=== PATIENT | female | born 1945 | race Two or more races ===

== ENCOUNTER 2017-07-15 15:30 | Emergency (ER) | payer OTHER ==
[~2017-07-15] VITALS: Ht 157.5 cm; Wt 51.7 kg
[~2017-07-15 15:30] MED LIST: PHE100C PO
[2017-07-15 16:13] LABS: Hematocrit 40.5 % (36.0-46.0); Hemoglobin 13.2 g/dL (12.2-16.2); Mean Corpuscular Hemoglobin 31.3 pg (28.0-32.0); Mean Corpuscular Hgb Conc. 32.6 g/dL (32.0-36.0); Mean Platelet Volume 7.6 fL (6.9-10.8); Platelet Count (auto) 246 10^3/uL (140-450); White Blood Cell 8.7 10^3/uL (4.4-10.8)
[2017-07-15] MEDS ORDERED: SODIUM CHLORIDE 0.9% 1,000 ML IVB ONE (16:36)
[2017-07-15 16:42] LABS: Albumin 3.3 g/dL (3.4-5.0); Alkaline Phosphatase 115 U/L (45-117); Anion Gap 10 (5-15); Aspartate Aminotransferase 15 U/L (15-37); BUN/Creatinine Ratio 20.3; Bilirubin, Total 0.1 mg/dL (0.2-1.0); Blood Urea Nitrogen 14 mg/dL (7-18); Calcium 8.5 mg/dL (8.5-10.1); Carbon Dioxide 25 mmol/L (21-32); Chloride 106 mmol/L (98-107); GFR African American 107 mL/min; GFR Non-African American 88 mL/min; Glucose 126 mg/dL (74-106); Magnesium 2.3 mg/dL (1.6-2.6); Potassium 3.7 mmol/L (3.5-5.1); Sodium 141 mmol/L (136-145); Total Protein 6.7 g/dL (6.4-8.2)
[2017-07-15 16:47] LABS: Metamyelocytes % 0; Myelocytes % 0; Promyelocytes % 0; Reactive Lymphocytes 0
[2017-07-15 17:12] LABS: Platelet Estimate Adequate
[2017-07-15 18:41] VITALS: BP 159/58
== END 2017-07-15 18:46 | disposition home or self-care (01) ==
LOC: EDBD 15:30 → ER 15:38
DX: R55 Syncope and collapse (principal); Z86.73 Personal history of transient ischemic attack (TIA), and cerebral infarction without residual deficits; Z79.899 Other long term (current) drug therapy
CPT/HCPCS: 36415; 70450; 80053; 83735; 84484; 85007; 85027; 93005; 94761

== ENCOUNTER 2017-12-26 12:51 | Emergency (ER) | payer OTHER ==
[~2017-12-26] VITALS: Ht 167.6 cm; Wt 56.2 kg
[2017-12-26 13:51] LABS: Basophils # (auto) 0.1 uL; Basophils % (auto) 0.8 % (0.0-2.0); Eosinophils # (auto) 0.1 uL; Eosinophils % (auto) 1.2 % (0.0-7.0); Hematocrit 41.3 % (36.0-46.0); Hemoglobin 14.1 g/dL (12.2-16.2); Lymphocytes # (auto) 2.6 uL; Lymphocytes % (auto) 26.8 % (10.0-50.0); Mean Corpuscular Hemoglobin 32.1 pg (28.0-32.0); Mean Corpuscular Hgb Conc. 34.1 g/dL (32.0-36.0); Monocytes # (auto) 0.8 uL; Monocytes % (auto) 7.9 % (0.0-12.0); Neutrophils # (auto) 6.2 uL; Neutrophils % (auto) 63.3 % (37.0-80.0); Platelet Count (auto) 289 10^3/uL (140-450); Red Cell Distribution Width 13.4 % (11.8-14.3); White Blood Cell 9.7 10^3/uL (4.4-10.8)
[2017-12-26 14:34] LABS: Alanine Aminotransferase 40 U/L (13-56); Albumin 3.5 g/dL (3.4-5.0); Alkaline Phosphatase 132 U/L (45-117); Amylase 37 U/L (25-115); Anion Gap 7 (5-15); Aspartate Aminotransferase 24 U/L (15-37); BUN/Creatinine Ratio 13.4; Bilirubin, Total 0.2 mg/dL (0.2-1.0); Blood Urea Nitrogen 13 mg/dL (7-18); Carbon Dioxide 26 mmol/L (21-32); Chloride 108 mmol/L (98-107); GFR African American 72 mL/min; GFR Non-African American 60 mL/min; Glucose 98 mg/dL (74-106); Lipase 121 U/L (73-393); Magnesium 2.8 mg/dL (1.6-2.6); Potassium 4.1 mmol/L (3.5-5.1); Sodium 141 mmol/L (136-145); Total Protein 6.9 g/dL (6.4-8.2)
[2017-12-26 16:35] VITALS: BP 113/61
== END 2017-12-26 16:40 | disposition home or self-care (01) ==
LOC: ER 12:51
DX: K29.70 Gastritis, unspecified, without bleeding (principal); Z90.49 Acquired absence of other specified parts of digestive tract; Z90.710 Acquired absence of both cervix and uterus
CPT/HCPCS: 36415; 74176; 80053; 82150; 83690; 83735; 84484; 85025; 93005

== ENCOUNTER 2019-10-15 21:23 | Emergency (ER) | payer OTHER ==
[~2019-10-15] VITALS: Ht 157.5 cm; Wt 54.4 kg
[2019-10-15] MEDS ORDERED: LORazepam 2MG/ML-1ML VIAL ONE (22:26)
[2019-10-15] MEDS ORDERED: LORazepam 2MG/ML-1ML VIAL IV ONE (22:30)
[2019-10-15] MEDS ORDERED: SODIUM CHLORIDE 0.9% 1,000 ML IV ONE (22:45)
[2019-10-15 22:48] LABS: Basophils # (auto) 0 uL; Basophils % (auto) 0.4 % (0.0-2.0); Eosinophils # (auto) 0 uL; Eosinophils % (auto) 0.1 % (0.0-7.0); Hematocrit 40.8 % (36.0-46.0); Hemoglobin 13.9 g/dL (12.2-16.2); Lymphocytes # (auto) 1.8 uL; Lymphocytes % (auto) 18.4 % (10.0-50.0); Mean Corpuscular Hemoglobin 32.9 pg (28.0-32.0); Mean Corpuscular Hgb Conc. 34.1 g/dL (32.0-36.0); Mean Corpuscular Volume 96.5 fL (80.0-100.0); Monocytes # (auto) 0.7 uL; Monocytes % (auto) 6.8 % (0.0-12.0); Neutrophils # (auto) 7.1 uL; Neutrophils % (auto) 74.3 % (37.0-80.0); Nucleated Red Blood Cells % 0.1 %; Platelet Count (auto) 202 10^3/uL (140-450); Red Blood Cells 4.22 10^6/uL (4.0-5.20); Red Cell Distribution Width 13.3 % (11.8-14.3); White Blood Cell 9.6 10^3/uL (4.4-10.8)
[2019-10-15 23:06] LABS: Albumin 3.5 g/dL (3.4-5.0); Calcium 8.6 mg/dL (8.5-10.1); Magnesium 2.4 mg/dL (1.6-2.6); Potassium 4.1 mmol/L (3.5-5.1)
[2019-10-15 23:09] LABS: BUN/Creatinine Ratio 14.5; Bilirubin, Total 0.3 mg/dL (0.2-1.0); Total Protein 7.1 g/dL (6.4-8.2)
[2019-10-15] MEDS ORDERED: ASPI-231 PO (23:52)
[2019-10-15] MEDS ORDERED: PHE100C PO (23:52)
[2019-10-16] MEDS ORDERED: DexAMETHasone SOD PHOS 10MG/1ML VIAL INJ IV ONE (00:30)
[2019-10-16] MEDS ORDERED: LORazepam 2MG/ML-1ML VIAL IV ONE (00:45)
[2019-10-16] MEDS ORDERED: PHENYTOIN IV DILANTIN 1,000 MG in SODIUM CHL 0.9% 250 ML IV ONE (00:45)
[2019-10-16] MEDS ORDERED: PHENYTOIN SODIUM 50 MG/ML 5ML INJ VIAL IV ONE (00:50)
[2019-10-16] MEDS ORDERED: PHENYTOIN SODIUM 50 MG/ML 2ML VIAL IV ONE (00:50)
[2019-10-16 01:56] VITALS: BP 101/35
[2019-10-16 02:06] LABS: INR 1.23 (0.9-1.15); Partial Thromboplastin Time 27.9 sec (23.64-32.05)
[2019-10-16] MEDS ORDERED: MANNITOL 20% SOLN 100 gm/500ml 250 ML IV ONE (02:15)
== END 2019-10-16 02:05 | disposition short-term general hospital (02) ==
LOC: EDBD 21:23 → ER 21:25
DX: S06.5X9A Traumatic subdural hemorrhage with loss of consciousness of unspecified duration, initial encounter (principal); G40.909 Epilepsy, unspecified, not intractable, without status epilepticus; Z90.49 Acquired absence of other specified parts of digestive tract; Z90.710 Acquired absence of both cervix and uterus; X58.XXXA Exposure to other specified factors, initial encounter; Y93.89 Activity, other specified; Y92.89 Other specified places as the place of occurrence of the external cause; Y99.8 Other external cause status
CPT/HCPCS: 36415; 70450; 71045; 80053; 80185; 83735; 85025; 85610; 85730; 93005; 96361; 96365; 96375; 99285; J1100; J1165; J2060; J7030; J7050

== ENCOUNTER 2021-09-26 11:03 | Emergency (ER) | payer OTHER ==
[~2021-09-26] VITALS: Ht 154.9 cm; Wt 54.4 kg
[~2021-09-26 11:03] MED LIST changes: +ASPI1TAB20 PO
[2021-09-26] MEDS ORDERED: SODIUM CHLORIDE 0.9% 1,000 ML IV ONE (11:15)
[2021-09-26 12:54] LABS: Basophils # (auto) 0 10 ^3/uL (0-0.2); Basophils % (auto) 0.6 % (0.0-2.0); Eosinophils # (auto) 0 10 ^3/uL (0-0.8); Eosinophils % (auto) 0.2 % (0.0-7.0); Hematocrit 41.4 % (36.0-46.0); Hemoglobin 14.3 g/dL (12.2-16.2); Lymphocytes # (auto) 1.3 10 ^3/uL (0.4-5.4); Lymphocytes % (auto) 16.7 % (10.0-50.0); Mean Corpuscular Hemoglobin 32.9 pg (28.0-32.0); Mean Corpuscular Hgb Conc. 34.6 g/dL (32.0-36.0); Mean Corpuscular Volume 95.1 fL (80.0-100.0); Monocytes # (auto) 0.5 10 ^3/uL (0-1.3); Monocytes % (auto) 6.5 % (0.0-12.0); Neutrophils # (auto) 5.9 10 ^3/uL (1.6-8.6); Nucleated Red Blood Cells % 0.2 %; Red Blood Cells 4.35 10^6/uL (4.0-5.20); Red Cell Distribution Width 12.9 % (11.8-14.3); White Blood Cell 7.8 10^3/uL (4.4-10.8)
[2021-09-26 13:17] LABS: Albumin 3.2 g/dL (3.4-5.0); BUN/Creatinine Ratio 14.9; Calcium 8.5 mg/dL (8.5-10.1); Potassium 4.5 mmol/L (3.5-5.1)
[2021-09-26 13:20] LABS: Bilirubin, Total 0.2 mg/dL (0.2-1.0); Total Protein 6.4 g/dL (6.4-8.2)
[2021-09-26] MEDS ORDERED: PHENYTOIN IV DILANTIN 500 MG in SODIUM CHL 0.9% 100 ML IV ONE (14:00)
[2021-09-26] MEDS ORDERED: ACETAMINOPHEN 325 MG TAB PO STA (14:22)
[2021-09-26 15:20] VITALS: BP 136/45
== END 2021-09-26 13:52 | disposition home or self-care (01) ==
LOC: EDBD 11:03 → ER 11:03
DX: S00.01XA Abrasion of scalp, initial encounter (principal); R56.9 Unspecified convulsions; R41.82 Altered mental status, unspecified; Z90.49 Acquired absence of other specified parts of digestive tract; Z90.710 Acquired absence of both cervix and uterus; X58.XXXA Exposure to other specified factors, initial encounter; Y93.89 Activity, other specified; Y92.89 Other specified places as the place of occurrence of the external cause; Y99.8 Other external cause status
CPT/HCPCS: 36415; 70450; 72125; 80053; 80185; 85025; 93005; 96361; 96365; 99284; J1165; J7030

== ENCOUNTER 2022-01-03 14:39 | Inpatient (IN) | payer OTHER ==
[~2022-01-03] VITALS: Ht 157.5 cm; Wt 56.8 kg
[2022-01-03] MEDS ORDERED: SODIUM CHLORIDE 0.9% 1,000 ML IV ONE ×2 (15:00→17:15)
[2022-01-03 16:21] LABS: Albumin 3.5 g/dL (3.4-5.0); Calcium 8.4 mg/dL (8.5-10.1); Magnesium 2.5 mg/dL (1.6-2.6); Potassium 4.1 mmol/L (3.5-5.1)
[2022-01-03 16:23] LABS: Salicylate < 1.7 mg/dL (2.8-20.0)
[2022-01-03 16:24] LABS: BUN/Creatinine Ratio 14.5; Bilirubin, Total 0.3 mg/dL (0.2-1.0); CRP High Sensitivity 0.18 mg/dL (< 0.3); Total Protein 6.9 g/dL (6.4-8.2)
[2022-01-03 16:28] LABS: Basophils # (auto) 0.2 10 ^3/uL (0-0.2); Basophils % (auto) 2.2 % (0.0-2.0); Eosinophils # (auto) 0.1 10 ^3/uL (0-0.8); Eosinophils % (auto) 0.9 % (0.0-7.0); Hematocrit 39.4 % (36.0-46.0); Hemoglobin 13.4 g/dL (12.2-16.2); Lymphocytes % (auto) 24.8 % (10.0-50.0); Mean Corpuscular Hemoglobin 32.8 pg (28.0-32.0); Mean Corpuscular Hgb Conc. 34.1 g/dL (32.0-36.0); Monocytes # (auto) 0.6 10 ^3/uL (0-1.3); Monocytes % (auto) 6.9 % (0.0-12.0); Neutrophils # (auto) 5.2 10 ^3/uL (1.6-8.6); Neutrophils % (auto) 65.2 % (37.0-80.0); Nucleated Red Blood Cells % 0.1 %; Red Cell Distribution Width 13.8 % (11.8-14.3)
[2022-01-03 16:49] LABS: Phenytoin (Dilantin) 45.4 ug/mL (10-20)
[2022-01-03] MEDS ORDERED: HYDROcodone-ACET 5/325MG TAB PO PRN (21:45)
[2022-01-03] MEDS ORDERED: DOCUSATE SOD 100 MG CAP PO PRN (21:45)
[2022-01-03] MEDS ORDERED: ONDANSETRON HCL 4 MG/2 ML VIAL IV PRN (21:45)
[2022-01-03] MEDS ORDERED: NITROGLYCERIN 0.4 MG SL TAB SL PRN (23:45)
[2022-01-03] MEDS ORDERED: MORPHINE SULFATE INJ 2 MG/ml SYRG IV PRN (23:45)
[2022-01-04 00:03] LABS: Urine Bacteria MOD /hpf (None Seen); Urine Blood 3+ /uL (Negative); Urine Specific Gravity 1.006 (1.001-1.035); Urine WBC <1 /hpf (0 - 5)
[2022-01-04 06:12] LABS: Basophils # (auto) 0.1 10 ^3/uL (0-0.2); Basophils % (auto) 0.8 % (0.0-2.0); Eosinophils # (auto) 0.1 10 ^3/uL (0-0.8); Eosinophils % (auto) 1.7 % (0.0-7.0); Hematocrit 38.4 % (36.0-46.0); Hemoglobin 13.2 g/dL (12.2-16.2); Lymphocytes # (auto) 2.1 10 ^3/uL (0.4-5.4); Lymphocytes % (auto) 30.1 % (10.0-50.0); Mean Corpuscular Hgb Conc. 34.4 g/dL (32.0-36.0); Mean Corpuscular Volume 95.9 fL (80.0-100.0); Monocytes # (auto) 0.6 10 ^3/uL (0-1.3); Monocytes % (auto) 8.3 % (0.0-12.0); Neutrophils # (auto) 4.2 10 ^3/uL (1.6-8.6); Neutrophils % (auto) 59.1 % (37.0-80.0); Nucleated Red Blood Cells % 0.1 %; Red Cell Distribution Width 13.9 % (11.8-14.3); White Blood Cell 7.1 10^3/uL (4.4-10.8)
[2022-01-04 06:28] LABS: Albumin 3.2 g/dL (3.4-5.0)
[2022-01-04 06:31] LABS: BUN/Creatinine Ratio 16.3; Bilirubin, Total 0.4 mg/dL (0.2-1.0); Total Protein 6.2 g/dL (6.4-8.2)
[2022-01-04] MEDS: ACETAMINOPHEN 325 MG TAB PO PRN ×2 (09:51→17:19)
[2022-01-04] MEDS: ASPirin 81 mg TAB PO SCH (09:53)
[2022-01-04 16:33] VITALS: BP 136/46
[2022-01-04 17:49] VITALS: BP 136/46
[2022-01-04] MEDS ORDERED: ATO40T PO (18:18)
[2022-01-04] MEDS ORDERED: LORazepam 2MG/ML-1ML VIAL IV PRN (20:00)
[2022-01-04 21:04] LABS: Folate (Folic Acid) 22.29 ng/mL (5.38-24)
[2022-01-04 22:00] VITALS: BP 114/39
[2022-01-04] MEDS: ATORVASTATIN 20 MG TAB PO SCH (23:03)
[2022-01-05 05:00] VITALS: BP 124/55
[2022-01-05 09:00] VITALS: BP 119/51
[2022-01-05] MEDS: ASPirin 81 mg TAB PO SCH (09:04)
[2022-01-05 13:00] VITALS: BP 122/52
[2022-01-05 17:23] VITALS: BP 120/53
[2022-01-05 19:38] LABS: Cholesterol 127 mg/dL (< 200); HDL Cholesterol 91 mg/dL (40-59); LDL Cholesterol 29 mg/dL (< 100); Triglycerides 114 mg/dL (< 150)
[2022-01-05] MEDS: ATORVASTATIN 20 MG TAB PO SCH (21:28)
[2022-01-05 22:00] VITALS: BP_SYST 115; BP_SYST 125; BP_DIAS 42; BP_DIAS 58
[2022-01-06 05:00] VITALS: BP 137/48
[2022-01-06] MEDS: ASPirin 81 mg TAB PO SCH (09:17)
[2022-01-06 13:00] VITALS: BP 142/56
[2022-01-06 17:00] VITALS: BP 127/52
[2022-01-06] MEDS: ATORVASTATIN 20 MG TAB PO SCH (21:10)
[2022-01-06 21:48] VITALS: BP 132/50
[2022-01-07 05:00] VITALS: BP 144/46
[2022-01-07 08:30] VITALS: BP 129/60
[2022-01-07] MEDS: ASPirin 81 mg TAB PO SCH (09:42)
[2022-01-07 12:30] VITALS: BP 130/55
[2022-01-07 16:39] VITALS: BP 124/81
== END 2022-01-07 19:35 | disposition home health service (06) | DRG 93 ==
LOC: ER 14:39 → EDBD 14:39 → TELE 23:45 → TELE-EAST 01-04 16:17
PROVIDERS: ADMIT Nurse Practitioner Family; ATTEND Internal Medicine
DX: G92.8 Other toxic encephalopathy (principal); T42.0X5A Adverse effect of hydantoin derivatives, initial encounter; E88.09 Other disorders of plasma-protein metabolism, not elsewhere classified; G40.409 Other generalized epilepsy and epileptic syndromes, not intractable, without status epilepticus; H53.2 Diplopia; R29.6 Repeated falls; F03.90 Unspecified dementia, unspecified severity, without behavioral disturbance, psychotic disturbance, mood disturbance, and anxiety; Z20.822 Contact with and (suspected) exposure to COVID-19; X58.XXXA Exposure to other specified factors, initial encounter; S09.90XA Unspecified injury of head, initial encounter; Z90.710 Acquired absence of both cervix and uterus; Z90.49 Acquired absence of other specified parts of digestive tract; Z86.73 Personal history of transient ischemic attack (TIA), and cerebral infarction without residual deficits; Z79.899 Other long term (current) drug therapy; Z79.82 Long term (current) use of aspirin; Y93.89 Activity, other specified; Y92.89 Other specified places as the place of occurrence of the external cause; Y99.8 Other external cause status
CPT/HCPCS: 36415; 70450; 71045; 72125; 80053; 80061; 80185; 80329; 81001; 82140; 82607; 82746; 83605; 83735; 84443; 84484; 85025; 86141; 93005; 95819; 97116; 97163; 97530; G0378

== ENCOUNTER 2022-04-28 14:16 | Emergency (ER) | payer OTHER ==
[~2022-04-28] VITALS: Ht 157.5 cm; Wt 52.0 kg
[~2022-04-28 14:16] MED LIST changes: +ATO40T PO; -PHE100C PO
[2022-04-28] MEDS ORDERED: CEPH-510 PO (15:57)
[2022-04-28] MEDS ORDERED: CLIN300C8 PO (15:57)
[2022-04-28] MEDS ORDERED: ACET-1158 PO (15:57)
[2022-04-28] MEDS ORDERED: TETANUS-DIPTH-ACEL PERTUSSIS 0.5ML SYR Tdap IM ONE (16:00)
[2022-04-28] MEDS ORDERED: cefTRIAXone SOD 1,000 MG VL IM ONE (16:00)
[2022-04-28] MEDS ORDERED: ONDANSETRON ODT 4 MG TAB PO ONE (16:00)
[2022-04-28] MEDS ORDERED: HYDROcodone-ACET 5/325MG TAB PO ONE (16:00)
[2022-04-28 16:45] VITALS: BP 126/64
== END 2022-04-28 17:27 | disposition home or self-care (01) ==
LOC: ER 14:21
DX: L03.116 Cellulitis of left lower limb (principal); Z90.49 Acquired absence of other specified parts of digestive tract; Z90.710 Acquired absence of both cervix and uterus; Z79.82 Long term (current) use of aspirin; Z79.2 Long term (current) use of antibiotics; Z79.899 Other long term (current) drug therapy
CPT/HCPCS: 90471; 90715; 96372; 99283; J0696; Q0162

== ENCOUNTER 2022-08-18 11:26 | Emergency (ER) | payer OTHER ==
[~2022-08-18] VITALS: Ht 165.1 cm; Wt 54.5 kg
[~2022-08-18 11:26] MED LIST changes: +ACET-1158 PO; +CEPH-510 PO; +CLIN300C8 PO
[2022-08-18] MEDS ORDERED: LORazepam 2MG/ML-1ML VIAL IV ONE (12:30)
[2022-08-18] MEDS ORDERED: LORazepam 2MG/ML-1ML VIAL ONE (12:31)
[2022-08-18 12:38] LABS: Albumin 3.8 g/dL (3.4-5.0); Calcium 8.5 mg/dL (8.5-10.1); Magnesium 2.5 mg/dL (1.6-2.6); Potassium 4.5 mmol/L (3.5-5.1)
[2022-08-18 12:42] LABS: BUN/Creatinine Ratio 19.7; Bilirubin, Total 0.3 mg/dL (0.2-1.0)
[2022-08-18 13:19] LABS: Hemoglobin 15.2 g/dL (12.2-16.2); Mean Corpuscular Hemoglobin 32.4 pg (28.0-32.0); Mean Corpuscular Hgb Conc. 33.1 g/dL (32.0-36.0); Mean Corpuscular Volume 97.8 fL (80.0-100.0); Red Blood Cells 4.71 10^6/uL (4.0-5.20); Red Cell Distribution Width 13.8 % (11.8-14.3); White Blood Cell 11.5 10^3/uL (4.4-10.8)
[2022-08-18 13:24] LABS: Basophils % (manual) 0 (0.0-2.0); Blast Cells 0; Eosinophils % (manual) 0 (0-7); Metamyelocytes % 0; Myelocytes % 0; Promyelocytes % 0; Reactive Lymphocytes 0
[2022-08-18 14:40] LABS: Band Neutrophils % (manual) 3; Lymphocytes % (manual) 21 (10.0-50.0); Monocytes % (manual) 3 (0-12)
[2022-08-18] MEDS ORDERED: PHENYTOIN SODIUM 100 MG CAP PO ONE (16:15)
[2022-08-18 17:03] LABS: Urine Bacteria FEW /hpf (None Seen); Urine Blood 3+ /uL (Negative); Urine Specific Gravity 1.013 (1.001-1.035); Urine WBC 2 /hpf (0 - 5)
[2022-08-18 17:25] VITALS: BP 128/76
== END 2022-08-18 17:39 | disposition home or self-care (01) ==
LOC: EDBD 11:26 → EDUNIT# 11:26 → ER 11:26
DX: R56.9 Unspecified convulsions (principal); R89.2 Abnormal level of other drugs, medicaments and biological substances in specimens from other organs, systems and tissues; D72.829 Elevated white blood cell count, unspecified; Z90.49 Acquired absence of other specified parts of digestive tract; Z90.710 Acquired absence of both cervix and uterus; Z86.73 Personal history of transient ischemic attack (TIA), and cerebral infarction without residual deficits
CPT/HCPCS: 36415; 70450; 71045; 80053; 80185; 81001; 82962; 83735; 85007; 85027; 93005; 96374; 99284; J2060

== ENCOUNTER 2022-09-22 13:14 | Inpatient (IN) | payer OTHER ==
[~2022-09-22] VITALS: Ht 157.5 cm; Wt 54.2 kg
[2022-09-22] MEDS ORDERED: SODIUM CHLORIDE 0.9% 1,000 ML IV ONE (13:30)
[2022-09-22 14:38] LABS: Albumin 3.4 g/dL (3.4-5.0); Potassium 3.6 mmol/L (3.5-5.1)
[2022-09-22 14:41] LABS: BUN/Creatinine Ratio 18.6; Bilirubin, Total 0.1 mg/dL (0.2-1.0); Total Protein 6.3 g/dL (6.4-8.2)
[2022-09-22 15:21] LABS: Basophils # (auto) 0 10 ^3/uL (0-0.2); Basophils % (auto) 0.4 % (0.0-2.0); Eosinophils # (auto) 0.1 10 ^3/uL (0-0.8); Eosinophils % (auto) 0.8 % (0.0-7.0); Hematocrit 41.9 % (36.0-46.0); Hemoglobin 14.3 g/dL (12.2-16.2); Lymphocytes # (auto) 2.1 10 ^3/uL (0.4-5.4); Mean Corpuscular Hemoglobin 33.1 pg (28.0-32.0); Mean Corpuscular Volume 97.2 fL (80.0-100.0); Monocytes # (auto) 0.5 10 ^3/uL (0-1.3); Monocytes % (auto) 7.2 % (0.0-12.0); Neutrophils # (auto) 4.7 10 ^3/uL (1.6-8.6); Neutrophils % (auto) 63.6 % (37.0-80.0); Red Blood Cells 4.31 10^6/uL (4.0-5.20); Red Cell Distribution Width 13.1 % (11.8-14.3); White Blood Cell 7.3 10^3/uL (4.4-10.8)
[2022-09-22] MEDS ORDERED: ONDANSETRON HCL 4 MG/2 ML VIAL IV PRN (22:00)
[2022-09-22] MEDS ORDERED: TEMAZEPAM 15 MG CAP PO PRN (22:00)
[2022-09-22] MEDS ORDERED: ACETAMINOPHEN 325 MG TAB PO PRN (22:00)
[2022-09-22 22:36] LABS: Calcium 8.8 mg/dL (8.5-10.1); Potassium 3.9 mmol/L (3.5-5.1)
[2022-09-22 22:40] LABS: BUN/Creatinine Ratio 17.9
[2022-09-22] MEDS: ATORVASTATIN 20 MG TAB PO SCH (22:49)
[2022-09-23] MEDS ORDERED: LORazepam 2MG/ML-1ML VIAL IV PRN ×2 (02:30→11:00)
[2022-09-23 05:56] LABS: Basophils # (auto) 0 10 ^3/uL (0-0.2); Basophils % (auto) 0.4 % (0.0-2.0); Eosinophils # (auto) 0.1 10 ^3/uL (0-0.8); Eosinophils % (auto) 1.8 % (0.0-7.0); Hematocrit 41.3 % (36.0-46.0); Hemoglobin 13.8 g/dL (12.2-16.2); Lymphocytes # (auto) 2.7 10 ^3/uL (0.4-5.4); Lymphocytes % (auto) 32.4 % (10.0-50.0); Mean Corpuscular Hemoglobin 32.5 pg (28.0-32.0); Mean Corpuscular Hgb Conc. 33.5 g/dL (32.0-36.0); Mean Corpuscular Volume 97.2 fL (80.0-100.0); Monocytes # (auto) 0.8 10 ^3/uL (0-1.3); Monocytes % (auto) 9.8 % (0.0-12.0); Neutrophils # (auto) 4.6 10 ^3/uL (1.6-8.6); Neutrophils % (auto) 55.6 % (37.0-80.0); Nucleated Red Blood Cells % 0.1 %; Red Blood Cells 4.25 10^6/uL (4.0-5.20); Red Cell Distribution Width 13.3 % (11.8-14.3); White Blood Cell 8.3 10^3/uL (4.4-10.8)
[2022-09-23] MEDS: ENOXAPARIN SOD 40 MG/0.4 ML SYRINGE SC SCH (08:20)
[2022-09-23] MEDS ORDERED: PHENYTOIN SODIUM 100 MG CAP PO SCH (10:00)
[2022-09-23] MEDS: PHENYTOIN SODIUM 100 MG CAP PO SCH ×2 (12:47→22:20)
[2022-09-23] MEDS: ATORVASTATIN 20 MG TAB PO SCH (22:26)
[2022-09-23 23:20] LABS: Urine Bacteria MANY /hpf (None Seen); Urine Blood 2+ /uL (Negative); Urine Specific Gravity 1.003 (1.001-1.035); Urine WBC 2 /hpf (0 - 5)
[2022-09-23 23:36] VITALS: BP 150/51
[2022-09-24 05:00] VITALS: BP 128/50
[2022-09-24 09:34] VITALS: BP 111/42
[2022-09-24] MEDS ORDERED: ASPirin 81 mg TAB PO SCH (10:00)
[2022-09-24 12:54] VITALS: BP 138/48
[2022-09-24 17:06] VITALS: BP 138/48
[2022-09-24] MEDS: ENOXAPARIN SOD 40 MG/0.4 ML SYRINGE SC SCH (19:00)
== END 2022-09-24 19:55 | disposition home or self-care (01) | DRG 101 ==
LOC: ER 13:14 → EDBD 13:14 → OVERFLOW 21:57 → WEST WING 09-23 22:45
PROVIDERS: ADMIT Nurse Practitioner; ATTEND Internal Medicine
DX: G40.409 Other generalized epilepsy and epileptic syndromes, not intractable, without status epilepticus (principal); Z20.822 Contact with and (suspected) exposure to COVID-19; M85.80 Other specified disorders of bone density and structure, unspecified site; F03.90 Unspecified dementia, unspecified severity, without behavioral disturbance, psychotic disturbance, mood disturbance, and anxiety; E78.5 Hyperlipidemia, unspecified; Z79.82 Long term (current) use of aspirin; Z86.73 Personal history of transient ischemic attack (TIA), and cerebral infarction without residual deficits; Z90.710 Acquired absence of both cervix and uterus; Z79.899 Other long term (current) drug therapy; Z90.49 Acquired absence of other specified parts of digestive tract
CPT/HCPCS: 36415; 70450; 70551; 80048; 80053; 80185; 81001; 84484; 85025; 87426; 93005; 93306; 95819; 96365; 96372; 97163; G0378; J7060

== ENCOUNTER 2024-06-03 16:32 | Inpatient (IN) | payer OTHER ==
[~2024-06-03] VITALS: Ht 30.5 cm; Wt 48.5 kg
[~2024-06-03 16:32] MED LIST changes: -ACET-1158 PO; +ACET500T58 PO; -ATO40T PO; +ATOR-507 PO; +CLIN1CAP70 PO; -CLIN300C8 PO
[2024-06-03] MEDS ORDERED: ONDANSETRON HCL 4 MG/2 ML VIAL IV PRN (16:45)
[2024-06-03] MEDS ORDERED: MORPHINE SULFATE INJ 2 MG/ml SYRG IV PRN (16:45)
[2024-06-03] MEDS ORDERED: hydrALAZINE HCL 20 MG/ML VL IV PRN (16:45)
[2024-06-03] MEDS ORDERED: NITROGLYCERIN 0.4 MG SL TAB SL PRN (16:45)
[2024-06-03 19:00] VITALS: BP 142/45; PULSE 70; RESP 18; TEMP 98.2; O2SAT 95
[2024-06-03 20:30] LABS: Triglycerides 59 mg/dL (< 150)
[2024-06-03 20:31] LABS: LDL Cholesterol 29 mg/dL (< 100)
[2024-06-03 20:32] LABS: Cholesterol 110 mg/dL (< 200); HDL Cholesterol 64 mg/dL (40-59)
[2024-06-03 20:35] VITALS: BP 142/45; PULSE 70; RESP 18; TEMP 98.2; O2SAT 95; O2SAT 96
[2024-06-03 21:00] VITALS: BP 144/51; PULSE 70; RESP 18; TEMP 98.1; O2SAT 96
[2024-06-03] MEDS: PHENYTOIN SODIUM 100 MG CAP PO SCH (22:00)
[2024-06-03] MEDS ORDERED: ATOR40TA52 PO (22:22)
[2024-06-03] MEDS ORDERED: PHEN1CAP38 PO (22:22)
[2024-06-03] MEDS: SODIUM CHLORIDE 0.9% 500 ML IV ONE (22:26)
[2024-06-03] MEDS: ATORVASTATIN 20 MG TAB PO SCH (22:29)
[2024-06-03] MEDS: LOSARTAN POTASSIUM 25 MG TAB PO SCH (22:29)
[2024-06-04 01:00] VITALS: BP 133/59; PULSE 72; RESP 18; TEMP 98; O2SAT 95
[2024-06-04 01:18] LABS: Anion Gap 7 (5-15); Carbon Dioxide 23 mmol/L (20-31); Chloride 108 mmol/L (98-107); Potassium 3.8 mmol/L (3.5-5.1); Sodium 138 mmol/L (136-145)
[2024-06-04 01:19] LABS: Calcium 8.8 mg/dL (8.7-10.4)
[2024-06-04 01:24] LABS: BUN/Creatinine Ratio 15.4 (10.0-20.0); Blood Urea Nitrogen 8 mg/dL (9-23); Glucose 98 mg/dL (74-106)
[2024-06-04] MEDS ORDERED: traMADol HCL 50 MG TAB PO PRN ×2 (03:45→04:00)
[2024-06-04] MEDS ORDERED: ACETAMINOPHEN 325 MG TAB PO PRN (03:45)
[2024-06-04 05:00] VITALS: BP 114/71; PULSE 67; RESP 17; TEMP 98.1; O2SAT 94
[2024-06-04 08:30] VITALS: PULSE 51; PULSE 62; RESP 18; O2SAT 97
[2024-06-04 09:06] VITALS: BP 115/58; PULSE 51; RESP 18; TEMP 97.9; O2SAT 97
[2024-06-04] MEDS: ENOXAPARIN SOD 40 MG/0.4 ML SYRINGE SC SCH (10:00)
[2024-06-04] MEDS: ASPirin-EC 81 mg tab PO SCH (10:00)
[2024-06-04] MEDS: CLOPIDOGREL BISULFATE 75 MG TAB PO SCH (10:00)
[2024-06-04] MEDS: FAMOTIDINE 20 MG TAB PO SCH (10:00)
== END 2024-06-04 10:45 | disposition left against medical advice (07) | DRG 69 ==
LOC: TELE-EAST 18:43
PROVIDERS: ADMIT Hospitalist; ATTEND Hospitalist
DX: G45.9 Transient cerebral ischemic attack, unspecified (principal); T42.0X5A Adverse effect of hydantoin derivatives, initial encounter; H53.2 Diplopia; R26.81 Unsteadiness on feet; G40.909 Epilepsy, unspecified, not intractable, without status epilepticus; Y92.89 Other specified places as the place of occurrence of the external cause; Z87.828 Personal history of other (healed) physical injury and trauma
CPT/HCPCS: 36415; 80048; 80061; 80185; 83036; 87081; 97163; G0378